=== PATIENT | male | born 1960 | race Caucasian/White ===

== ENCOUNTER 2017-03-03 20:24 | Inpatient (IN) ==
[2017-03-03 21:17] LABS: MANUAL DIFF NEEDED? NO
[2017-03-03 21:28] LABS: BASO% 0.2 % (0.0-0.8); EOS# 0.26 X1000 (0.0-0.7); EOS% 2.1 % (0.0-10.0); HEMATOCRIT 43.9 % (42.0-52.0); HEMOGLOBIN 15.2 g/dL (14.0-18.0); IMM GRAN# 0.02 X1000 (0.0-0.04); IMM GRAN% 0.2 % (0.0-0.5); LYMPH# 1.98 X1000 (1.2-3.4); LYMPH% 15.9 % (20.5-51.1); MCH 30.8 PG (27-31); MCHC 34.6 g/dL (33-37); MCV 88.9 FL (81-99); MONO# 1.05 X1000 (0.11-0.59); MONO% 8.4 % (1.7-9.3); MPV 11.2 FL (7.4-10.4); NEUT% 73.2 % (42.2-75.2); PLT 203 X1000 (130-400); RBC 4.94 XMIL (4.7-6.1)
[2017-03-03 21:45] LABS: AGAP 10; ALBUMIN 4.1 g/dL (3.5-5.0); ALKALINE PHOSPHATASE 75 U/L (32-122); BUN 17 mg/dL (8-22); CHLORIDE 102 mmol/L (98-107); COSMO 279; GOT 19 U/L (10-34); GPT 22 U/L (10-44); POTASSIUM 4.2 mmol/L (3.5-5.1); SODIUM 139 mmol/L (136-145); TCO2 27 mmol/L (25-35); TOTAL BILIRUBIN 0.45 mg/dL (0.20-1.00); TOTAL PROTEIN 6.9 g/dL (6.3-8.3)
--- NOTE | 2017-03-03 23:07 | PROVIDER DOCUMENTATION ---
HPI-General Adult - General Chief Complaint: General Adult Stated Complaint: LT HAND/ARM SWELLING Time Seen by Provider: 03/03/17 22:13 Source: patient, family Allergies/Adverse Reactions: Patient Allergies Allergy/AdvReac Type Severity Reaction Status Date / Time No Known Allergies Allergy Verified 03/03/17 22:58 Home Medications: Home Medication List Medication Instructions Recorded Confirmed Last Taken Type Aspirin 81 mg PO DAILY 06/13/15 03/03/17 03/03/17 History Escitalopram Oxalate [Lexapro] 10 mg PO DAILY 06/13/15 03/03/17 03/03/17 History Gabapentin [Gabapentin] 1 tab PO HS 03/03/17 03/03/17 03/03/17 History Hydrocodone/Acetaminophen [[place] 1 each PO PRN PRN 03/03/17 03/03/17 03/03/17 History 7.5-325 Tablet] Indomethacin 50 mg PO BID 03/03/17 03/03/17 03/03/17 History Metformin HCl [Metformin HCl ER] 1 tab PO DAILY 03/03/17 03/03/17 03/03/17 History Moxifloxacin [Avelox] 400 mg PO DAILY 03/03/17 03/03/17 03/03/17 History Pantoprazole Sodium [Pantoprazole 1 tab PO QAM 03/03/17 03/03/17 03/03/17 History Sodium] Pravastatin Sodium [Pravastatin 1 tab PO HS 03/03/17 03/03/17 03/03/17 History Sodium] Tamsulosin HCl [Tamsulosin HCl] 1 tab PO HS 03/03/17 03/03/17 03/03/17 History - History of Present Illness -Gen Adult Nature of Presenting Problems: 57 YO WM presents with left hand swelling and redness x 7 days. Saw his PCM on Saturday (5 days ago) thought was gout and started treatment. WBC was elevated and no elevation in uric acid so PCM switch to abx on Saturday (Moxifloxacin) and [place]. Had increase swelling and redness today, along with pain, that is traveling up his left arm. Denies injury, bite, trauma to the skin, hx of pain, fever at home, N/V/D. Location of Pain/Injury: reports: hand(s) Pain Radiation: reports: arm(s) Quality of Pain: reports: sharp, stabbing Severity: reports: moderate Onset/Duration: reports: 1 week ago Timing: reports: still present, getting worse Context/Activities at Onset: reports: none Modifying Factors: improves with: analgesics, other (antibiotics) Associated Symptoms: reports: arm pain. denies: back/neck pain, chest pain, cough, diarrhea, dizziness, EENT symptoms, fatigue, fever/chills, headaches Review of Systems - Adult - REVIEW OF SYSTEMS - ADULT Constitutional: reports: no symptoms reported Past History - Adult - PAST MEDICAL HISTORY-ADULT Review of Records: reports: Old Records Reviewed, Nursing Assessment Review, Medications Reviewed, Social history reviewed & non-contributory. Major Childhood Illnesses: reports: denies history Cardiovascular: reports: HTN Respiratory: reports: denies history Gastrointestinal: reports: denies history Genitourinary: reports: denies history Musculoskeletal: reports: denies history Neurological: reports: denies history Psychiatric: reports: depression Endocrine/Immune: reports: thyroid disorder - PRIOR SURGERIES/PROCEDURES Surgical/Procedure History: reports: none - IMMUNIZATION STATUS Childhood Immunizations: UTD - FAMILY HISTORY Family History: reviewed, not pertinent Physical Exam-General - PHYSICAL EXAM-ADULT Initial Vital Signs Reviewed: Yes - CONSTITUTIONAL General Appearance: alert, moderate distress - EYES Eyes: PERRL/EOMI, pink conjunctivae. negative: sclera injected, scleral icterus - HEAD, EARS, NOSE, MOUTH & THROAT HENMT: normocephalic/atraumatic, moist mucous membranes, normal ENT inspection - NECK Neck: non-tender, full range of motion, supple - RESPIRATORY Respiratory: chest non-tender, lungs clear, normal breath sounds, no pleuratic chest pain, no respiratory distress, no accessory muscle use. negative: crackles, rales, rhonchi, stridor, wheezing - CARDIOVASCULAR Cardiovascular: normal peripheral pulses, no gallop, no JVD, no murmur, tachycardia. negative: no edema (mild edema to left wrist) Progress - PLAN OF CARE/RESULTS Progress/Plan/Lab Results: Vital Signs - 8 hr 03/03/17 20:40 Temperature 98.4 F Pulse Rate 99 H Respiratory Rate 16 Blood Pressure 114/59 O2 Sat by Pulse Oximetry 97 Laboratory Results - last 24 hr 03/03/17 03/03/17 03/03/17 20:52 20:52 20:52 WBC 12.46 H RBC 4.94 Hgb 15.2 Hct 43.9 MCV 88.9 MCH 30.8 MCHC 34.6 RDW Std Deviation 13.0 Plt Count 203 MPV 11.2 H Immature Gran % (Auto) 0.2 Neut % (Auto) 73.2 Lymph % (Auto) 15.9 L [place] % (Auto) 8.4 Eos % (Auto) 2.1 Baso % (Auto) 0.2 Immature Gran # (Auto) 0.02 Neut # (Auto) 9.13 H Lymph # (Auto) 1.98 [place] # (Auto) 1.05 H Eos # (Auto) 0.26 Baso # (Auto) 0.02 PTT (Actin FS) 28.7 Sodium 139 Potassium 4.2 Chloride 102 Carbon Dioxide 27 Anion Gap 10 BUN 17 Creatinine 0.8 Estimated GFR/1.73 m2 > 60 BUN/Creatinine Ratio 21 Glucose 99 Calculated Osmolality 279 Calcium 9.0 Total Bilirubin 0.45 AST 19 ALT 22 Alkaline Phosphatase 75 Total Protein 6.9 Albumin 4.1 Globulin 2.8 Albumin/Globulin Ratio 1.5 Plasma Lactate 03/03/17 20:52 WBC RBC Hgb Hct MCV MCH MCHC RDW Std Deviation Plt Count MPV Immature Gran % (Auto) Neut % (Auto) Lymph % (Auto) [place] % (Auto) Eos % (Auto) Baso % (Auto) Immature Gran # (Auto) Neut # (Auto) Lymph # (Auto) [place] # (Auto) Eos # (Auto) Baso # (Auto) PTT (Actin FS) Sodium Potassium Chloride Carbon Dioxide Anion Gap BUN Creatinine Estimated GFR/1.73 m2 BUN/Creatinine Ratio Glucose Calculated Osmolality Calcium Total Bilirubin AST ALT Alkaline Phosphatase Total Protein Albumin Globulin Albumin/Globulin Ratio Plasma Lactate 0.5 Orders Category Date Time Status HAND COMPLETE LEFT [RAD] Stat Exams 03/03/17 20:49 Taken BLOOD CULTURE [BLDCUL] Stat Lab 03/03/17 20:52 Received CBC WITH DIFF [HEME] Stat Lab 03/03/17 20:52 Completed CMP [COMPREHENSIVE METABOLIC PANEL] [CHEM] Stat Lab 03/03/17 20:52 Completed LACTATE, PLASMA [CHEM] Stat Lab 03/03/17 20:52 Completed PTT [COAG] Stat Lab 03/03/17 20:52 Completed Result Diagrams: 03/03/17 20:52 03/03/17 20:52 - REASSESSMENT Reassessment #1 Time Reassessed: 23:21 (Dr Velazquez at bedside. Concern for septic joint. He spoke with orthopedics for admission and cleanout. ) Departure - Departure Time of Disposition Decision: 23:26 DIAGNOSIS: Septic arthritis Qualifiers: Septic arthritis location: wrist Septic arthritis organism: due to unspecified organism Laterality: left Qualified Code(s): M00.9 - Pyogenic arthritis, unspecified Disposition: ADMITTED INPATIENT 09 Certified Medical Emergency: Emergent Condition: Fair Referrals and Follow-Ups: Lalo Fall MD [Primary Care Provider] - - Critical Care Note This patient required my direct & personal management of CC.: No
[2017-03-03] MEDS: VANCOMYCIN 1 GM/NS 1 GM/250 ML IVPB IV SCH (23:50)
[2017-03-04] MEDS ORDERED: NS 1,000 ML IV SCH (00:27)
[2017-03-04] MEDS ORDERED: ZOFRAN IV PRN (00:27)
[2017-03-04] MEDS: NORCO-10 PO PRN ×5 (01:04→20:24)
[2017-03-04] MEDS: ROCEPHIN 1 GM/NS 1 GM/50 ML IVPB IV SCH ×2 (01:04→23:51)
--- NOTE | 2017-03-04 01:22 | HISTORY AND PHYSICAL ---
CHIEF COMPLAINT: Left wrist pain and swelling. PRIMARY CARE PHYSICIAN: Dr. Lalo Fall. 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 Had presented to the emergency department with a 1-week history of having left wrist pain, more on his ulnar side. He states that this started about a week ago, and it has become so painful that he could not move his wrist. The patient states that he had seen his primary care physician, who put him on some pain medicines and anti-inflammatory agents. However, it did not improve. The patient apparently was evaluated in the ER, and as per ER physician, there was some concern of possible septic arthritis. Due to these findings, it was thought that patient would benefit from hospitalization for orthopedic evaluation. At the time of my examination, patient had denied any headache, visual changes, fevers, chills, chest pain, shortness of breath, hemoptysis, or any weight changes. Patient also denied any kind of direct trauma to the wrist also. PAST MEDICAL HISTORY: Includes diabetes mellitus type 2 and hyperlipidemia. PAST SURGICAL HISTORY: Tonsillectomy. ALLERGIES: No known drug allergies. CURRENT MEDICATIONS: Listed in the MAR. SOCIAL HISTORY: A [id number] history of smoking. Denies any history of alcohol or illicit drug use. FAMILY HISTORY: Positive for coronary artery disease in mother. REVIEW OF SYSTEMS: Twelve-point review of systems listed as in HPI. Other systems negative. PHYSICAL EXAMINATION: GENERAL: Cooperative, friendly male. He is resting comfortably now. VITAL SIGNS: Temperature 98.4 degrees, pulse 99, respirations 16, blood pressure 114/59. He is saturating 97%. HEENT: Atraumatic, normocephalic. Extraocular movements intact. PERRLA. NECK: Supple. CHEST: Clear to auscultation. CARDIOVASCULAR: Regular rate and rhythm. ABDOMEN: Soft, nontender. Positive bowel sounds. EXTREMITIES: Moderate tenderness on the left ulnar side of his wrist. NEUROLOGIC: He is awake, alert, oriented x3. GENITOURINARY: No bladder distention. SKIN: Warm. LABORATORIES AND STUDIES: WBC 12.46, hemoglobin 15.2, hematocrit 43.9, platelets 203,000. Sodium 139, potassium 4.2, chloride 102, CO2 is 27, BUN is 17, creatinine 0.8, glucose is 99. 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 Due to concerns of possible septic arthritis, the patient will be admitted for evaluation by Orthopedics. 1. Suspected left wrist septic arthritis. 2. Possible extensor carpi ulnaris tendinopathy. 3. Diabetes mellitus type 2. 4. Ongoing tobacco abuse. PLAN: 1. We will admit patient to medical floor. 2. We will give patient adequate pain control and consult Orthopedics. 3. We will continue with NSAIDs. 4. We will monitor blood glucose and put patient on a sliding scale insulin regimen. 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 6. We will put patient on deep venous thrombosis prophylaxis with sequential compression devices. 7. We will continue to follow and reassess. cc: Adrián Frye MD
[2017-03-04 06:04] LABS: MANUAL DIFF NEEDED? NO
[2017-03-04 06:12] LABS: BASO% 0.2 % (0.0-0.8); EOS# 0.22 X1000 (0.0-0.7); EOS% 2.1 % (0.0-10.0); HEMOGLOBIN 14.9 g/dL (14.0-18.0); LYMPH# 1.83 X1000 (1.2-3.4); LYMPH% 17.5 % (20.5-51.1); MCH 30.2 PG (27-31); MCHC 33.9 g/dL (33-37); MCV 89.2 FL (81-99); MONO# 1.15 X1000 (0.11-0.59); MPV 10.7 FL (7.4-10.4); NEUT% 69.2 % (42.2-75.2); PLT 199 X1000 (130-400); RBC 4.93 XMIL (4.7-6.1)
[2017-03-04 06:19] LABS: AGAP 11; BUN 11 mg/dL (8-22); CALCIUM 8.3 mg/dL (8.8-10.2); CHLORIDE 104 mmol/L (98-107); COSMO 283; SODIUM 142 mmol/L (136-145); TCO2 27 mmol/L (25-35)
[2017-03-04] MEDS: HUMULIN R SUBQ SCH ×4 (06:59→20:23)
--- NOTE | 2017-03-04 08:07 | Diag Imaging Result Document ---
PROCEDURE NAME: HAND COMPLETE LEFT - 03/03/2017 X-RAY LEFT HAND 3 VIEWS, 03/03/2017: COMPARISON: 06/13/2015. FINDINGS: Bones are intact and normally aligned. Joint spaces and soft tissues are clear. IMPRESSION: Negative exam.
[2017-03-04] MEDS: LEXAPRO PO SCH (09:43)
[2017-03-04] MEDS: PROTONIX PO SCH (09:43)
[2017-03-04] MEDS: ASPIRIN PO SCH (09:43)
[2017-03-04] MEDS: VOLTAREN 1% GEL TOP SCH ×4 (10:57→23:51)
[2017-03-04] MEDS: NICODERM PATCH TD SCH (12:32)
[2017-03-04] MEDS: VANCOMYCIN 1 GM/NS 1 GM/250 ML IVPB IV SCH (14:04)
[2017-03-04] MEDS ORDERED: VANCOMYCIN IV PER PHARMACY MISC SCH (14:15)
--- NOTE | 2017-03-04 14:37 | CONSULTATION ---
DATE OF CONSULTATION: 03/04/2017 PRIMARY CARE PROVIDER: Dr. Lalo Fall. CONSULTING PHYSICIAN: Dr. Adrián Frye. REASON FOR CONSULT: Left wrist pain and swelling, possible septic arthritis. HISTORY OF PRESENT ILLNESS: Mr. 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 He presented to the emergency department after having wrist pain for about a week with swelling. He came to the emergency room after his primary care doctor put him on some anti-inflammatory medicine to treat his condition which did not help. The patient was evaluated in the ER, x-rays were obtained of the wrist, and the patient was admitted for further evaluation. We were consulted to evaluate for possible septic arthritis. PAST MEDICAL HISTORY: Diabetes mellitus type 2 and hyperlipidemia. PAST SURGICAL HISTORY: Tonsillectomy. ALLERGIES: No known drug allergies. HOME MEDICATIONS: Aspirin 81 mg, Lexapro 10 mg p.o. daily, Protonix 40 mg 1 p.o. q.a.m., metformin 500 mg 1 p.o. daily, Avelox 400 mg p.o. daily, [place] 7.5 one p.o. p.r.n., pravastatin 40 mg 1 p.o. at bedtime, gabapentin 300 mg 1 p.o. at bedtime, tamsulosin 0.4 mg 1 p.o. at bedtime, and indomethacin 50 mg p.o. b.i.d. REVIEW OF SYSTEMS: A 10 point review of systems was performed and the patient answered in the negative in all except for what was mentioned above in the history of present illness. PHYSICAL EXAMINATION: General: The patient is awake. He is sitting in the bed. He is articulate and able to answer questions appropriately. HEENT: Head is normocephalic, atraumatic. Pupils equal, round, reactive to light. Nares patent. Throat without exudate. Cardiac: S1, S2 auscultated. No murmur, rub, or gallop noted. Lungs: Clear to auscultation in all lung souza. Abdomen: Soft, nontender, nondistended. Bowel sounds present in all quadrants. Genitourinary: Not examined. Neurological: Patient has good sensation to dull touch. Cranial nerves 2 through 12 are grossly intact. Musculoskeletal: Physical examination reveals patient has pain of his left wrist and hand with palpation. The patient also has pain with pronation and supination of the left hand with severe pain. The patient has good sensation to dull touch at the finger tips. He has brisk capillary refill as well as 2+ radial pulse in the left wrist. There is some erythema on the dorsal side of the hand and it is notable that the hand is warmer to the touch than the other hand. IMAGING: X-ray was obtained of the left hand wrist which was completely negative ASSESSMENT: After assessing the patient and reviewing the past history, I believe the patient has a cellulitis of the left hand and wrist. 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 At this point we would not perform any surgical procedure to help with the situation. I feel we can start him on vancomycin and have pharmacy to dose that. I am going to put the gentleman in a sling for comfort and remove his splint and we can help with pain medication if necessary. We will await the results of blood cultures that were obtained and we will follow along appropriately. Dictated by SUREKHA Sheppard for Nicholas Robison MD cc: SUREKHA Sheppard MD Stephen W. Harbin, MD
[2017-03-04] MEDS ORDERED: VANCOMYCIN 1 GM/NS 1 GM/250 ML IVPB IV ONE (15:00)
--- NOTE | 2017-03-04 18:48 | PROGRESS NOTE ---
DATE: 03/04/2017 SUBJECTIVE: Patient has left wrist/hand/arm in a splint. Lying in bed. He has had pain in his left wrist area. The patient was seen in my office a few days ago and consideration was given for septic joint. Initially he did respond to anti-inflammatories. There were 3 scratch thomas on his left wrist and we placed him on Avelox. He failed to respond to outpatient. He came to the ER yesterday for admission. Patient's white count was 12,000. He is on ceftriaxone and vancomycin currently. OBJECTIVE: Vital Signs: Afebrile, pulse 72, respirations 20, blood pressure 122/63. Cardiovascular: RRR. Lungs: CTA. Extremities: Left arm in brace. Lower extremities without calf tenderness or cords. No other joints with synovitis. LABORATORY: White count down to 10.48 from 12.46, hemoglobin 14.9, platelets 199,000. Blood cultures x2 negative thus far. Sodium 142, potassium 4.0, chloride 104, CO2 27, BUN 11, creatinine 0.7, glucose 112, calcium 8.3, plasma lactate on admission 0.5. ASSESSMENT: 1. Left wrist/hand swelling and pain. Rule out septic joint versus cellulitis. 2. Type 2 diabetes mellitus. 3. Hyperlipidemia. 4. Tobacco abuse. PLAN: Orthopedics is going to see the patient later today. Continue ceftriaxone and vancomycin currently along with Voltaren gel, Neurontin, aspirin, Lexapro, nicotine patch, Pravachol and required. Follow blood cultures. cc: Lalo Fall MD
[2017-03-04] MEDS: FLOMAX PO SCH (20:24)
[2017-03-04] MEDS: NEURONTIN PO SCH (20:24)
[2017-03-04] MEDS: PRAVACHOL PO SCH (20:24)
[2017-03-05] MEDS: VANCOMYCIN 1,500 MG in NS 250 ML IV SCH ×2 (03:21→16:22)
[2017-03-05] MEDS: NORCO-10 PO PRN ×2 (05:01→18:38)
[2017-03-05] MEDS: HUMULIN R SUBQ SCH ×4 (06:02→21:44)
[2017-03-05] MEDS: PROTONIX PO SCH (08:15)
[2017-03-05] MEDS: NICODERM PATCH TD SCH (08:15)
[2017-03-05] MEDS: ASPIRIN PO SCH (08:15)
[2017-03-05] MEDS: VOLTAREN 1% GEL TOP SCH ×4 (08:15→21:43)
[2017-03-05] MEDS: LEXAPRO PO SCH (08:15)
--- NOTE | 2017-03-05 08:58 | PROGRESS NOTE ---
DATE: 03/05/2017 SUBJECTIVE: Angel Farr is a 57-year-old male who has cellulitis of his left arm. There was concerned that he had a wrist joint infection as well. He states it feels better today and is less swollen. OBJECTIVE: General: He is a well-developed, well-nourished male. He is alert and cooperative with the exam. Extremities: There is still redness and swelling but the swelling has decreased from yesterday. He actually has good range of motion of his wrist and no pain with range of motion of his wrist eliminating the possibility of septic wrist. LABORATORY: His white count has normalized. ASSESSMENT: Cellulitis of the left arm. PLAN: I think he should continue on IV antibiotics. Once this starts to defervesce more he may be discharged home. Care repeat and tubal a. cc: MD Lalo Morgan MD
[2017-03-05] MEDS ORDERED: NICODERM PATCH TD SCH (09:00)
--- NOTE | 2017-03-05 13:50 | PROGRESS NOTE ---
DATE: 03/05/2017 SUBJECTIVE: Patient has seen slight improvement in discomfort and swelling left forearm and hand area. He is on IV antibiotics. No nausea or vomiting. He does disclose the 1st time today and his shows a picture to me from her cellphone where the patient had a baby squirrel which came out of the brooks and ran up his left arm about a week prior to onset of this left hand and arm swelling. He does admit the squirrel did latch down with teeth on his distal 3rd or 2nd digit but the teeth did not break the skin according to him. In fact, there were 2 squirrels that ran up his arm and playfully were around him about a week prior to onset of his symptoms. OBJECTIVE: Vital signs: Afebrile. Pulse 73, respirations 20, blood pressure 135/79, O2 saturation 91-94% on 2 L to room air. CV: RRR. Lungs: CTA. Extremities: Left arm with moderate swelling and mild redness also involving the left hand. Does have improved range of motion left wrist. DIAGNOSTIC DATA: Blood cultures remain negative at 48 hours. ASSESSMENT: 1. Cellulitis left forearm, wrist and hand. 2. Squirrel exposure with squirrel bite. 3. Type 2 diabetes mellitus. 4. Hyperlipidemia. 5. Tobacco abuse. 6. Borderline hypoxia thought related to probable chronic obstructive pulmonary disease. PLAN: Counseled the patient to stop cigarette smoking. Continue nicotine patch. Continue home medications. Continue ceftriaxone and vancomycin IV. Will ask Dr. Kenny Lord to see the patient regarding consideration for possible rabies vaccination. Repeat CBC, BMP, sedimentation rate in the morning. cc: Lalo Fall MD
--- NOTE | 2017-03-05 18:25 | CONSULTATION ---
DATE OF CONSULTATION: 03/05/2017 CONCLUSION: Dr. Fall has me to see the patient regarding rabies immunization. The patient reports to me that there were 2 baby squirrels around him and he picked them up. They ran up his left arm but they never bit him and specifically told me his skin was never broken. 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 RECOMMENDATIONS: The patient does not need rabies prophylaxis for 2 reasons. One, the squirrel is a very low risk animal to transmit rabies and second of all, the patient never really had any bite that broke the skin and thus there would be no way that something could be transferred such as rabies. DISCUSSION: The patient was working on his car. He had some baby squirrels that he picked up and ran up his arm, and as mentioned above, they never bit him. This was approximately 2 weeks ago. Approximately 10 days ago, his left arm became erythematous and swollen. He has been admitted to the hospital. He has cellulitis of the arm and is receiving antibiotic therapy. Also, he has been told to elevate his arm as much as possible. Even though the patient did have exposure to baby squirrels, I doubt that exposure caused him to have cellulitis of the arm. 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 DIAGNOSTIC STUDIES: Patient's studies thus far show he had an x-ray of the hand which showed no abnormalities. His CBC shows a white count of 10,480, hemoglobin 14.9, and platelet count 199,000. Creatinine is 0.7. REVIEW OF SYSTEMS: Eyes and ears: He denies difficulty hearing or seeing. Neck: No stiffness. Respiratory: No cough or shortness of breath. Cardiac: No chest pain or palpitations. GI: No nausea, vomiting, or diarrhea. Endocrine: Patient does have diabetes, but not thyroid disease. Hematologic: No history of anemia or bleeding tendency. Neurologic: No seizures. No motor or sensory deficit. Remainder of the patient's review of systems was completed and was negative. PAST MEDICAL/SURGICAL HISTORY: Previous hospitalizations and operations: He has had a tonsillectomy, and he was admitted with a renal calculus. Medical Diseases: Positive for renal calculus, diabetes mellitus and cigarette smoking which undoubtedly would cause some degree of lung damage. Infectious Disease History: Negative for pneumonia and UTI. FAMILY HISTORY: Positive for diabetes mellitus, hypertension, congestive heart failure and stroke. SOCIAL HISTORY: [place] 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 He is . ALLERGIES: He has no known drug allergies. MEDICATIONS: His home medications include pravastatin, gabapentin, tamsulosin, Lexapro, aspirin, pantoprazole, metformin, Avelox, indomethacin and hydrocodone. SUBSTANCE HISTORY: The patient smokes cigarettes. He does not drink alcoholic beverages or abuse drugs. FAMILY HISTORY: Positive for coronary artery disease. PHYSICAL EXAMINATION: Vital Signs: Temperature is 98.7, pulse 77, respirations 18, blood pressure 154/85. Patient weighs 196 pounds. Generally: This is an obese, middle-aged male. He is in no acute distress. Extremities: The left arm is swollen, but on the basis of observation of the patient and his and also the fact that wrinkles have formed on the left arm, it is less swollen than when he came in. There is still some erythema involving the hand, but it seems to be fading according to the patient and his . Lungs: Clear to auscultation. Cardiovascular: Regular heart rate. Abdomen: Soft and nontender. Neurologic: Patient is alert. He can move his extremities. There is no tremor. His sensation is intact to touch. His memory, as regarding his medical history is intact. Thank you for the consult. cc: MD Lalo Roque MD
[2017-03-05] MEDS: PRAVACHOL PO SCH (21:42)
[2017-03-05] MEDS: FLOMAX PO SCH (21:43)
[2017-03-05] MEDS: NEURONTIN PO SCH (21:43)
[2017-03-06] MEDS: ROCEPHIN 1 GM/NS 1 GM/50 ML IVPB IV SCH (00:23)
[2017-03-06] MEDS: VANCOMYCIN 1,500 MG in NS 250 ML IV SCH ×2 (03:27→16:30)
[2017-03-06 05:52] LABS: MANUAL DIFF NEEDED? NO
[2017-03-06 05:59] LABS: BASO% 0.4 % (0.0-0.8); EOS% 2.7 % (0.0-10.0); HEMATOCRIT 43.6 % (42.0-52.0); HEMOGLOBIN 14.9 g/dL (14.0-18.0); LYMPH# 1.73 X1000 (1.2-3.4); LYMPH% 23.2 % (20.5-51.1); MCH 30.3 PG (27-31); MCHC 34.2 g/dL (33-37); MCV 88.6 FL (81-99); MONO# 0.79 X1000 (0.11-0.59); MONO% 10.6 % (1.7-9.3); MPV 10.7 FL (7.4-10.4); NEUT% 63.1 % (42.2-75.2); PLT 222 X1000 (130-400); RBC 4.92 XMIL (4.7-6.1)
[2017-03-06 06:13] LABS: AGAP 9; BUN 12 mg/dL (8-22); CALCIUM 8.4 mg/dL (8.8-10.2); CHLORIDE 107 mmol/L (98-107); COSMO 280; SODIUM 140 mmol/L (136-145); TCO2 24 mmol/L (25-35)
[2017-03-06] MEDS: HUMULIN R SUBQ SCH ×4 (06:30→21:36)
[2017-03-06 07:08] LABS: SED RATE 29 mm/hr (0-15)
--- NOTE | 2017-03-06 08:42 | PROGRESS NOTE ---
DATE: 03/06/2017 SUBJECTIVE: Patient overall doing better. There is less pain and swelling at the left wrist, forearm, hand area, although still a fair amount of swelling and tenderness. Dr. Lord saw the patient in regard to potential need for rabies vaccination and thankfully he does not feel the patient requires that. OBJECTIVE: Vital Signs: Afebrile, pulse 68, respirations 20, blood pressure 141/69, O2 saturation on room air of 94-97%. CV: RRR without murmur. Lungs: Distant breath sounds. CTA. Extremities: Lower extremities without calf tenderness, cords, or edema. Right arm without swelling or tenderness. Left forearm with mild swelling, mild to moderate swelling of left wrist, mild swelling of left hand. Improvement is noted. There is tenderness, mostly at the left wrist area. Laboratory Data: Blood cultures at this point appeared to have been reported out just this morning. It is at near 7 o'clock. Gram positive rods in his blood culture. Further sensitivities pending. ASSESSMENT: 1. Gram positive rods per blood culture. 2. Cellulitis of left wrist, hand, and arm. 3. History of squirrel bite without breakage of the skin. 4. Type 2 diabetes mellitus. 5. Hyperlipidemia. 6. Tobacco abuse with suspected chronic obstructive pulmonary disease. PLAN: We counseled again with the patient to stop smoking. He is using the nicotine patch. We strongly discouraged any smoking whatsoever. For now, continue ceftriaxone and vancomycin. We will changer fixer to oral anti-inflammatory at patient request instead of the topical. Labs are good today. Sedimentation rate is 29. White count 7. We will monitor the patient and further evaluate the blood culture situation. Allow orthopedics and Dr. Lord to see the patient later on, and possibly discharge the patient home late today or in the morning if he continues to do well. cc: Lalo Fall MD
[2017-03-06] MEDS: ASPIRIN PO SCH (09:33)
[2017-03-06] MEDS: PROTONIX PO SCH (09:33)
[2017-03-06] MEDS: LEXAPRO PO SCH (09:33)
[2017-03-06] MEDS: NICODERM PATCH TD SCH (09:33)
[2017-03-06] MEDS: NORCO-10 PO PRN ×3 (10:52→21:34)
--- NOTE | 2017-03-06 12:56 | PROGRESS NOTE ---
DATE: 03/06/2017 SUBJECTIVE: Angel Dalal is a 57-year-old male who has cellulitis of the left arm with a concern that he had a wrist joint infection, as well. He states that it feels better today and it is less red and less swollen. OBJECTIVE: General: He is a well developed, well nourished male. He is alert and cooperative with exam. Extremities: There is mild erythema and some swelling, but the swelling has decreased from yesterday. He has good range of motion of his wrist and no pain with range of motion of his wrist, which eliminates the possibility of a septic wrist. LABORATORY: His white count has normalized. ASSESSMENT: Cellulitis of the left arm. PLAN: He should continue antibiotics and we are okay for him to go home on IV antibiotics if necessary. Dictated by JESSEE Jackson for Nicholas Robison MD cc: JESSEE Jackson MD Stephen W. Harbin, MD
[2017-03-06] MEDS: CELEBREX PO SCH (16:42)
[2017-03-06] MEDS: NEURONTIN PO SCH (21:34)
[2017-03-06] MEDS: FLOMAX PO SCH (21:34)
[2017-03-06] MEDS: PRAVACHOL PO SCH (21:34)
[2017-03-07] MEDS ORDERED: SODIUM CHLORIDE 0.9% 10 ML ONE (00:24)
[2017-03-07] MEDS: ROCEPHIN 1 GM/NS 1 GM/50 ML IVPB IV SCH (00:26)
[2017-03-07] MEDS: VANCOMYCIN 1,500 MG in NS 250 ML IV SCH (04:00)
[2017-03-07 07:31] VITALS: BP 146/87
[2017-03-07] MEDS: HUMULIN R SUBQ SCH (07:44)
--- NOTE | 2017-03-07 08:27 | PROGRESS NOTE ---
DATE: 03/07/2017 SUBJECTIVE: Angel Dalal is a 57-year-old male with cellulitis of his left hand and wrist. He states it is much improved. He has minimal pain with range of motion of his hand today. There is much less swelling and erythema he states. OBJECTIVE: General: He is a well-developed, well-nourished male. He is alert and cooperative with the exam. Extremities: His hand is much improved. There is only some mild redness at this point. Much less swelling. He has good range of motion. There is no fluctuance. Vital signs: Stable. He is afebrile. ASSESSMENT: Improving cellulitis of the left hand. PLAN: I am okay with him being changed over to a p.o. antibiotics such as Keflex and he can be discharged home from my standpoint when cleared medically by Dr. Fall. He can follow up with me as needed. cc: MD Lalo Morgan MD
[2017-03-07] MEDS: ASPIRIN PO SCH (08:53)
[2017-03-07] MEDS: LEXAPRO PO SCH (08:53)
[2017-03-07] MEDS: CELEBREX PO SCH (08:53)
[2017-03-07] MEDS: PROTONIX PO SCH (08:53)
[2017-03-07] MEDS: NICODERM PATCH TD SCH (08:54)
[2017-03-07] MEDS ORDERED: SEPTRA DS PO SCH (09:00)
--- NOTE | 2017-03-07 14:29 | PROGRESS NOTE ---
DATE: 03/07/2017 SUBJECTIVE: Patient doing better. Left wrist forearm and hand improved with swelling and warmth and range of motion and pain, although he still has some discomfort at the left wrist area. Unfortunately yesterday blood cultures 1 of 2 came back positive yesterday morning for gram positive rods so we kept him overnight to make sure that did not show up in both sets of blood cultures. OBJECTIVE: Vital Signs: This morning afebrile, pulse 60, respirations 14, blood pressure 146/87, O2 saturation room air 92-95%. CV: RRR without distinct murmur. Lungs: Distant breath sounds. CTA. Left arm hand and wrist have improved markedly. There is still mild swelling especially in the ulnar aspect left hand and left wrist, but he has markedly improved range of motion. Lower extremities without calf tenderness, cords, or edema. Blood cultures this morning are growing diphtheroids but only out a 1 of the 2 cultures from the blood, so this appears to be a contaminant. ASSESSMENT: 1. Cellulitis left hand wrist and forearm. Improving. 2. One of 2 blood cultures growing diphtheroids consistent with contaminant. 3. Squirrel bite left arm without breakage of the skin with Dr. Lord Infectious Disease not recommending rabies vaccination. 4. Type 2 diabetes mellitus. 5. Hyperlipidemia. 6. Tobacco abuse. 7. Suspected chronic obstructive pulmonary disease. PLAN: Again counseled the patient to stop cigarette smoking. Continue nicotine patch. Will discharge him home on Bactrim DS and oral Celebrex and the nicotine patches and his home medications. He will follow up in my office in about 8 days. cc: Lalo Fall MD
--- NOTE | 2017-03-07 19:50 | DISCHARGE SUMMARY ---
ADMISSION DATE: 03/03/2017 DISCHARGE DATE: 03/07/2017 DIAGNOSES: 1. Cellulitis left hand, forearm, wrist. 2. 1 of 2 blood cultures growing diphtheroids consistent with contaminant. 3. Squirrel bite left hand, subacute, without breakage of the skin with Dr. Lord, Infectious Disease, not feeling the patient requires rabies vaccination. 4. Type 2 diabetes mellitus. 5. Hyperlipidemia. 6. Tobacco abuse. 7. Suspected COPD with baseline oxygen saturations running 91% to 95% on room air. 8. Depression. 9. Benign prostatic hypertrophy. CONSULTANTS: 1. Kenny Lord MD, Infectious Disease. 2. Dejuan Robison MD, Orthopedics. PROCEDURES: X-ray left hand, negative. REASON FOR ADMISSION AND HOSPITAL COURSE: The patient is a 57-year-old, white male followed in my medical practice. He presented to the office about a week prior to having been admitted. 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 He had 3 abrasions adjacent to the swelling on his wrist and hand. We did labs which showed a mild elevation in his white count. We treated him with outpatient Indocin. His uric acid level was normal. He also then was added on some Avelox and took about 2 days outpatient visit. He remained on the Avelox but saw worsened swelling in his distal forearm, left wrist and hand prior to admission. It was severely hurting him for the 72 hours prior to admission. He was admitted and there was consideration given to osteomyelitis or severe cellulitis. On admission white count was 12,000. Sedimentation rate during hospitalization was 29. Hemoglobin and platelets were normal throughout the hospitalization. PTT was normal at 28.2. CMP was normal. Blood sugars were monitored as he is a mild diabetic. Blood sugars were ranging 64 to low 100s. Patient was started on IV Rocephin and vancomycin, and a splint was placed on his left arm. Dr. Robison saw the patient and did not feel like he had osteomyelitis and indeed thought it was cellulitis. Patient saw improvement over the next [address] Kenny Lord was consulted as later in the hospitalization the patient divulged the information that he had a squirrel or two run up his left forearm and hand area about a week prior to onset of symptoms. He had some broken lesions on the arm. In fact his had a picture of the squirrel sitting on his arm next to a scabbed lesion. Patient then divulged that the squirrel did bite down on his 2nd or 3rd digit on the left but did not break the skin, so Dr. Lord was consulted to make sure the patient did not require rabies vaccination. Indeed Dr. Lord did not feel that was warranted in this particular case. The patient saw continued improvement. 1 of the 2 blood cultures, however, came back positive and as this was growing out we were concerned as it was showing gram positive rods, so we kept him overnight 1 additional night to make sure that it did not grow out in the 2nd blood culture and indeed it did not. This was consistent with a contaminant. We continued his IV ceftriaxone and vancomycin, and we treated him with nicotine patch and counseled him in regard to cigarette cessation. We discharged him home on 03/07. DISCHARGE MEDICATIONS: 1. Aspirin 81 mg p.o. daily. 2. Lexapro 10 mg p.o. daily. 3. Protonix 40 mg p.o. daily. 4. Metformin ER 500 mg p.o. daily with breakfast. 5. [place] 7.5 mg p.o. q.6 hours p.r.n. pain. 6. Pravachol 40 mg p.o. at bedtime. 7. Gabapentin 300 mg p.o. at bedtime. 8. Flomax 0.4 mg p.o. at bedtime. 9. Nicotine patch 21 mg to arm daily for 1 month, then change to 14 mg daily for a month, then 7 mg daily for a month, then off. 10. Bactrim DS 1 p.o. b.i.d. 11. Celebrex 200 mg p.o. daily. He will complete a 2 week course of antibiotics and then off. He will follow up in my office in 8 days. cc: Lalo Fall MD
== END 2017-03-07 09:35 | disposition home or self-care (01) ==
LOC: ED 20:24 → SUATTDRO 03-04 00:09 → 4N 03-04 00:09
PROVIDERS: ADMIT Family Medicine; ATTEND Family Medicine